=== PATIENT | female | born 1980 | race African-American/Black ===

== ENCOUNTER 2017-06-02 10:49 | Emergency (ER) | payer MEDICAID ==
[~2017-06-02] VITALS: Ht 167.6 cm; Wt 63.5 kg
[2017-06-02 10:53] VITALS: BP 170/99
[2017-06-02 11:37] VITALS: BP 167/103
--- NOTE | 2017-06-02 12:43 | Emergency Room Report ---
History of Present Illness General Chief Complaint: General Complaint Source: Patient Present Illness HPI 36 YO Female presents to the ED c/o 04/07 in severity left wrist pain since SAT and intermittent sharp left upper back/rib pain since FRI. pt. reports deep inhalation and cough can provoke the left posterior upper back pain on occasion to twisting of the torso. pt. states the pain does not happen every time. denies SOB, wheezing, or recent trauma or URI. denies hx of cancer, recent immobilization, or calf pain. Pt is right hand dominant. Pt. denies erythema, swelling, or increased temperature to the wrist. denies hx of gout/pseudogout or arthritis. 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 pt. states pain exacerbated with adduction and abduction of the wrist. Denies numbness tingling or loss of sensation or gross motor movements of the extremities, incontinence of bowel or bladder. Denies CP, Palpitations, LOC, AMS , dizziness, Changes in Vision, Sensation, paresthesias, or a sudden severe headache Allergies: Coded Allergies: No Known Allergies (Unverified , 06/02/17) Patient History Past Medical History: see triage record Past Surgical History: none Pertinent Family History: none Last Menstrual Period: 05/15/17 Now: No Reviewed Nursing Documentation: PMH: Agreed, PSxH: Agreed Nursing Documentation-PMH Past Medical History: No Stated History Review of Systems All Other Systems: negative except mentioned in HPI Physical Exam Vital Signs Date Time Temp Pulse Resp B/P (MAP) Pulse Ox O2 Delivery O2 Flow Rate FiO2 06/02/17 10:53 98.2 74 16 170/99 98 Room Air Sp02 EP Interpretation: reviewed, normal General Appearance: no apparent distress, alert, GCS 15, non-toxic Head: normocephalic, atraumatic Eyes: bilateral eye normal inspection, bilateral eye PERRL ENT: hearing grossly normal, normal voice Neck: full range of motion, supple/symm/no masses Respiratory: lungs clear, normal breath sounds, no rhonchi, no respiratory distress, no wheezing, speaking full sentences, other - TTP to the lateral posterior mid-rib cage, no obvious deformity, no bruises, no flail chest, Cardiovascular #1: regular rate, rhythm, normal capillary refill Cardiovascular #2: 2+ radial (R), 2+ radial (L) Genitourinary: no CVA tenderness Musculoskeletal: back normal, gait/station normal, normal range of motion, tender - TTP to the medial and dorasl aspect of the left wrist, no obvious deformity, FROM, no bruises, no swelling. Neurologic: alert, oriented x3, responsive, motor strength/tone normal, sensory intact, speech normal Psychiatric: judgement/insight normal, memory normal, mood/affect normal Skin: normal color, no rash, warm/dry, well hydrated Medical Decision Making PA Attestation Dr. Maya is my supervising Physician whom patient management has been discussed with. Diagnostic Impression: Primary Impression: Left wrist sprain Qualified Codes: S63.502A - Unspecified sprain of left wrist, initial encounter Additional Impression: Intercostal muscle strain Qualified Codes: S29.011A - Strain of muscle and tendon of front wall of thorax, initial encounter ER Course 36 YO Female presents to the ED c/o 04/07 in severity left wrist pain since SAT and intermittent sharp left upper back/rib pain since WED. pt. reports deep inhalation and cough can provoke the left posterior upper back pain on occasion to twisting of the torso. pt. states the pain does not happen every time. denies SOB, wheezing, or recent trauma or URI. denies hx of cancer, recent immobilization, or calf pain. Pt is right hand dominant. Pt. denies erythema, swelling, or increased temperature to the wrist. denies hx of gout/pseudogout or arthritis. 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 pt. states pain exacerbated with adduction and abduction of the wrist. Denies numbness tingling or loss of sensation or gross motor movements of the extremities, incontinence of bowel or bladder. Denies CP, Palpitations, LOC, AMS , dizziness, Changes in Vision, Sensation, paresthesias, or a sudden severe headache. Ddx considered but are not limited to Fracture, dislocation, contusion, Sprain/ Strain/Spasm, PE, PNA, pleurisy just to name a few Vital signs: are WNL, pt. is afebrile, pt. NAD, non-toxic in appearance H&PE are most consistent with musculoskeletal injury most likely tendonitis/ sprain, and intercostal muscle strain. ORDERS: - Imaging not warranted as no bony ttp, no hx of trauma or fall., lungs are CTA ED INTERVENTIONS: - Tavo wrap applied by maintenance technician. Pt. remains neurovascularly intact. - Left arm Sling applied by maintenance technician. Pt. remains neurovascularly intact. I do not suspect an emergent condition at this time. with current presentation pt. is stable for close outpatient follow up and conservative treatment. D/w pt. to return to ED with worsening or new symptoms. DISCHARGE: At this time pt. is stable for d/c to home. Will provide printed patient care instructions, and any necessary prescriptions. Care plan and follow up instructions have been discussed with the patient prior to discharge. Last Vital Signs Date Time Temp Pulse Resp B/P (MAP) Pulse Ox O2 Delivery O2 Flow Rate FiO2 06/02/17 11:37 66 16 167/103 99 Room Air 06/02/17 10:53 98.2 Disposition: HOME, SELF-CARE Condition: Stable Scripts Hydrochlorothiazide* (HYDROCHLOROTHIAZIDE*) 12.5 Mg Capsule 12.5 MG ORAL DAILY for 14 Days, #14 CAP Prov: Shirley Rebollar 06/02/17 Cyclobenzaprine Hcl* (FLEXERIL*) 10 Mg Tablet 10 MG ORAL THREE TIMES A DAY for 7 Days, #21 TAB Prov: Shirley Rebollar 06/02/17 Ibuprofen* (MOTRIN*) 600 Mg Tablet 600 MG ORAL THREE TIMES A DAY, #30 TAB 0 Refills Prov: Shirley Rebollar 06/02/17 Referrals: [facility],REFERRING (PCP) Departure Forms: Return to Work Return to Work Date: Jun 03, 2017 Work Restrictions: No Heavy Lifting, No Prolonged Standing, Desk Work Only Other Restrictions: light duty and limited use of the left wrist x 1 week. Return to Full Activity: Jun 10, 2017 Patient Instructions: Muscle Strain, Wrist Sprain Additional Instructions: Take medications as directed. Follow up with a Primary Care Provider in 3-5 days, even if your symptoms have resolved. --Please review list of primary care clinics, if you do not already have a primary care provider Return sooner to ED if new symptoms occur, or current symptoms become worse. Do not drink alcohol, drive, or operate heavy machinery while taking Muscle Relaxer - FLEXERIL as this may cause drowsiness. - Please note that this Emergency Department Report was dictated using Dragon surgical scrub technician technology software, occasionally this can lead to erroneous entry secondary to interpretation by the dictation equipment. Shirley Rebollar Jun 02, 2017 12:43
[2017-06-02] MEDS ORDERED: IBUPROFEN600 MG ORAL (12:44)
[2017-06-02] MEDS ORDERED: CYCLOBENZAPRINE10 MG ORAL (12:44)
[2017-06-02 13:40] VITALS: BP 177/135
[2017-06-02 13:45] VITALS: BP 180/112
[2017-06-02] MEDS ORDERED: HYDROCHLOROTH12.5 M2 ORAL (13:45)
[2017-06-02 14:01] VITALS: BP 181/112
== END 2017-06-02 14:02 | disposition home or self-care (01) ==
LOC: EMR 11:47
DX: S63.502A Unspecified sprain of left wrist, initial encounter (principal); S29.011A Strain of muscle and tendon of front wall of thorax, initial encounter; X50.3XXA Overexertion from repetitive movements, initial encounter; Y93.9 Activity, unspecified; Y92.9 Unspecified place or not applicable
CPT/HCPCS: 99284